=== PATIENT | female | born 1970 | race Caucasian/White ===

== ENCOUNTER 2019-10-21 00:29 | Emergency (ER) | payer OTHER ==
[~2019-10-21] VITALS: Ht 162.6 cm; Wt 113.6 kg
[~2019-10-21 00:29] MED LIST: ANUSOL-HC SUPPO25 MG REC; COLACE100 M1 PO; CYMBALTA PO; LANSOPRAZOLE30 MG PO; MESALAMINE4 GM/60 ML REC; MIRALAX17 GM/DOSE PO; PERCOCET 325 MG1 TA2 PO; XANAX XR2 MG PO; ZOCOR 40MG40 MG PO
[2019-10-21] MEDS ORDERED: LOPID600 M1 PO (00:41)
[2019-10-21] MEDS ORDERED: CYMBALTA60 M1 PO (00:41)
[2019-10-21] MEDS ORDERED: REMERON15 MG PO (00:41)
[2019-10-21] MEDS ORDERED: BENTYL 20MG20 MG/TAB PO (00:42)
[2019-10-21] MEDS ORDERED: SULFAZINE500 M2 PO (00:42)
[2019-10-21 01:05] LABS: HEMATOCRIT 29.1 % (37.0-47.0); HEMOGLOBIN 8.4 g/dL (12.5-16.0); MEAN CELL VOLUME 80 fl (78-100); MEAN PLATELET VOLUME 9.4 fl (7.4-10.4); PLATELET COUNT 235 K/mm3 (130-400); RED BLOOD COUNT 3.62 M/mm3 (4.10-5.30); RED CELL DISTRIBUTION WIDTH 17.7 % (11.5-14.5); WHITE BLOOD COUNT 7.2 K/mm3 (4.8-10.8)
[2019-10-21 01:14] LABS: ALBUMIN 3.9 g/dL (3.5-5.0); POTASSIUM 3.8 mmol/L (3.5-5.1)
[2019-10-21 01:15] LABS: CALCIUM 8.8 mg/dL (8.3-10.5)
[2019-10-21 01:17] LABS: TOTAL PROTEIN 6.5 g/dL (6.4-8.3)
[2019-10-21 01:18] LABS: TOTAL BILIRUBIN 0.3 mg/dL (0.2-1.2)
[2019-10-21 01:19] LABS: MEAN CORPUSCULAR HEMOGLOBIN 23 pg (27-31); MEAN CORPUSCULAR HGB CONC 29 g/dL (33-37)
[2019-10-21 01:20] LABS: HYPOCHROMIA 1+; LYMPHOCYTE 4 % (20-51); MICROCYTOSIS 1+; MONOCYTE 2 % (3-10); NEUTROPHILS 94 % (42-75); POLYCHROMASIA 1+
[2019-10-21 02:08] LABS: URINE APPEARANCE HAZY; URINE COLOR YELLOW
[2019-10-21 02:09] LABS: PH-URINE 5.5 (5.0 - 8.0); URINE BILIRUBIN NEGATIVE (NEGATIVE); URINE BLOOD TRACE (NEGATIVE); URINE KETONE 1+ (NEGATIVE); URINE LEUKOCYTE ESTERASE TRACE (NEGATIVE); URINE MUCUS PRESENT (NOT PRESENT); URINE NITRATE NEGATIVE (NEGATIVE); URINE PROTEIN(semi-quant) TRACE mg/dL (NEGATIVE); URINE UROBILINOGEN NORMAL (NORMAL)
[2019-10-21 03:16] VITALS: BP 145/104
== END 2019-10-21 03:16 | disposition left against medical advice (07) ==
LOC: ED 00:29
PROVIDERS: Family Medicine; Physician Assistant
DX: R10.32 Left lower quadrant pain (principal); R73.9 Hyperglycemia, unspecified; K21.9 Gastro-esophageal reflux disease without esophagitis; F41.9 Anxiety disorder, unspecified; E78.5 Hyperlipidemia, unspecified; D64.9 Anemia, unspecified; K51.90 Ulcerative colitis, unspecified, without complications; Z87.891 Personal history of nicotine dependence; Z90.49 Acquired absence of other specified parts of digestive tract; Z90.710 Acquired absence of both cervix and uterus; Z88.6 Allergy status to analgesic agent; Z88.8 Allergy status to other drugs, medicaments and biological substances
CPT/HCPCS: J1170

== ENCOUNTER 2020-09-19 16:24 | Emergency (ER) | payer OTHER ==
[~2020-09-19 16:24] MED LIST changes: +ALPRAZOLAM ER2 MG PO; +BENTYL 20MG20 MG/TAB PO; +CYMBALTA60 M1 PO; +LOPID600 M1 PO; +REMERON15 MG PO; +SULFAZINE500 M2 PO; -XANAX XR2 MG PO; -ZOCOR 40MG40 MG PO; +ZOCOR40 M1 PO
[2020-09-19] MEDS ORDERED: LANSOPRAZOLE30 MG PO (17:17)
[2020-09-19] MEDS ORDERED: ZOFRAN ODT4 MG PO (17:18)
[2020-09-19] MEDS ORDERED: NORCO 325 MG-51 TA1 PO (17:18)
[2020-09-19] MEDS ORDERED: DESYREL 100MG100 MG PO (17:20)
[2020-09-19 18:16] LABS: URINE WBC 0 /hpf (0-3)
[2020-09-19 18:19] LABS: HEMATOCRIT 34.8 % (37.0-47.0); HEMOGLOBIN 10.7 g/dL (12.5-16.0); MEAN CELL VOLUME 85 fl (78-100); MEAN CORPUSCULAR HEMOGLOBIN 26 pg (27-31); MEAN CORPUSCULAR HGB CONC 31 g/dL (33-37); MEAN PLATELET VOLUME 9.6 fl (7.4-10.4); PLATELET COUNT 289 K/mm3 (130-400); WHITE BLOOD COUNT 7.7 K/mm3 (4.8-10.8)
[2020-09-19 18:26] LABS: ALBUMIN 4.2 g/dL (3.5-5.0); POTASSIUM 3.6 mmol/L (3.5-5.1)
[2020-09-19 18:28] LABS: TOTAL PROTEIN 6.8 g/dL (6.4-8.3)
[2020-09-19 18:29] LABS: URINE APPEARANCE CLEAR; URINE COLOR YELLOW
[2020-09-19 18:30] LABS: TOTAL BILIRUBIN 0.4 mg/dL (0.2-1.2)
[2020-09-19 18:30] LABS: URINE BILIRUBIN NEGATIVE (NEGATIVE); URINE BLOOD NEGATIVE (NEGATIVE); URINE GLUCOSE NEGATIVE (NEGATIVE); URINE KETONE NEGATIVE (NEGATIVE); URINE LEUKOCYTE ESTERASE NEGATIVE (NEGATIVE); URINE NITRATE NEGATIVE (NEGATIVE); URINE PROTEIN(semi-quant) NEGATIVE (NEGATIVE); URINE UROBILINOGEN NORMAL (NORMAL)
[2020-09-19 18:39] LABS: HYPOCHROMIA 1+; LYMPHOCYTE 7 % (20-51); MONOCYTE 9 % (3-10); NEUTROPHILS 83 % (42-75); OVALOCYTES 1+; POLYCHROMASIA 1+
[2020-09-19] MEDS ORDERED: PREDNISONE20 M1 PO (20:23)
[2020-09-19] MEDS ORDERED: METOPROLOL SUCC50 M1 PO (20:39)
[2020-09-19 20:52] VITALS: BP 146/94
== END 2020-09-19 20:52 | disposition home or self-care (01) ==
LOC: ED 16:24
PROVIDERS: Family Medicine
DX: K51.30 Ulcerative (chronic) rectosigmoiditis without complications (principal); D64.9 Anemia, unspecified; I10 Essential (primary) hypertension; Z90.89 Acquired absence of other organs; Z90.49 Acquired absence of other specified parts of digestive tract; Z90.710 Acquired absence of both cervix and uterus; Z88.1 Allergy status to other antibiotic agents; Z88.6 Allergy status to analgesic agent
CPT/HCPCS: J0595; J2060; J2920

== ENCOUNTER 2020-09-22 12:06 | Emergency (ER) | payer OTHER ==
[~2020-09-22 12:06] MED LIST changes: +DESYREL 100MG100 MG PO; +METOPROLOL SUCC50 M1 PO; +NORCO 325 MG-51 TA1 PO; +PREDNISONE20 M1 PO; +ZOFRAN ODT4 MG PO
[2020-09-22 12:51] LABS: HEMATOCRIT 37.6 % (37.0-47.0); HEMOGLOBIN 11.6 g/dL (12.5-16.0); MEAN CELL VOLUME 83 fl (78-100); MEAN CORPUSCULAR HEMOGLOBIN 26 pg (27-31); MEAN CORPUSCULAR HGB CONC 31 g/dL (33-37); MEAN PLATELET VOLUME 9.7 fl (7.4-10.4); PLATELET COUNT 311 K/mm3 (130-400); RED BLOOD COUNT 4.52 M/mm3 (4.10-5.30); RED CELL DISTRIBUTION WIDTH 13.8 % (11.5-14.5); WHITE BLOOD COUNT 7.6 K/mm3 (4.8-10.8)
[2020-09-22 12:53] LABS: LYMPHOCYTE 9 % (20-51); MONOCYTE 9 % (3-10); NEUTROPHILS 80 % (42-75)
[2020-09-22 13:00] LABS: ALBUMIN 3.9 g/dL (3.5-5.0); POTASSIUM 3.7 mmol/L (3.5-5.1)
[2020-09-22 13:01] LABS: CALCIUM 8.8 mg/dL (8.3-10.5)
[2020-09-22 13:02] LABS: TOTAL PROTEIN 6.8 g/dL (6.4-8.3)
[2020-09-22 13:04] LABS: TOTAL BILIRUBIN 0.4 mg/dL (0.2-1.2)
[2020-09-22 13:57] LABS: URINE APPEARANCE CLEAR; URINE BILIRUBIN NEGATIVE (NEGATIVE); URINE BLOOD TRACE (NEGATIVE); URINE COLOR YELLOW; URINE GLUCOSE NEGATIVE (NEGATIVE); URINE KETONE NEGATIVE (NEGATIVE); URINE LEUKOCYTE ESTERASE NEGATIVE (NEGATIVE); URINE NITRATE NEGATIVE (NEGATIVE); URINE PROTEIN(semi-quant) TRACE mg/dL (NEGATIVE); URINE UROBILINOGEN NORMAL (NORMAL); URINE WBC 0-1 /hpf (0-3)
[2020-09-22 14:55] VITALS: BP 166/105
== END 2020-09-22 14:55 | disposition home or self-care (01) ==
LOC: ED 12:06
PROVIDERS: Physician Assistant
DX: R10.9 Unspecified abdominal pain (principal); I10 Essential (primary) hypertension; E78.5 Hyperlipidemia, unspecified; F41.9 Anxiety disorder, unspecified; K21.9 Gastro-esophageal reflux disease without esophagitis; Z90.49 Acquired absence of other specified parts of digestive tract; Z90.710 Acquired absence of both cervix and uterus; Z90.89 Acquired absence of other organs; Z87.891 Personal history of nicotine dependence; Z88.1 Allergy status to other antibiotic agents; Z88.6 Allergy status to analgesic agent; Z79.891 Long term (current) use of opiate analgesic
CPT/HCPCS: J2405; J3010; J7030; Q9967

== ENCOUNTER 2020-09-28 17:05 | Inpatient (IN) | payer OTHER ==
[~2020-09-28] VITALS: Ht 162.6 cm; Wt 105.3 kg
[2020-09-28 18:20] LABS: HEMATOCRIT 32.4 % (37.0-47.0); HEMOGLOBIN 9.8 g/dL (12.5-16.0); MEAN CELL VOLUME 85 fl (78-100); MEAN CORPUSCULAR HEMOGLOBIN 26 pg (27-31); MEAN CORPUSCULAR HGB CONC 30 g/dL (33-37); MEAN PLATELET VOLUME 9.4 fl (7.4-10.4); PLATELET COUNT 294 K/mm3 (130-400); RED BLOOD COUNT 3.82 M/mm3 (4.10-5.30); RED CELL DISTRIBUTION WIDTH 13.7 % (11.5-14.5)
[2020-09-28 18:30] LABS: ALBUMIN 3.6 g/dL (3.5-5.0); POTASSIUM 3.3 mmol/L (3.5-5.1)
[2020-09-28 18:32] LABS: CALCIUM 8.6 mg/dL (8.3-10.5)
[2020-09-28 18:33] LABS: TOTAL PROTEIN 6.3 g/dL (6.4-8.3)
[2020-09-28 18:34] LABS: LYMPHOCYTE 10 % (20-51); MONOCYTE 9 % (3-10); NEUTROPHILS 80 % (42-75)
[2020-09-28 18:35] LABS: TOTAL BILIRUBIN 0.2 mg/dL (0.2-1.2)
[2020-09-28 19:34] LABS: URINE APPEARANCE CLEAR; URINE BILIRUBIN NEGATIVE (NEGATIVE); URINE BLOOD NEGATIVE (NEGATIVE); URINE COLOR YELLOW; URINE GLUCOSE NEGATIVE (NEGATIVE); URINE KETONE NEGATIVE (NEGATIVE); URINE LEUKOCYTE ESTERASE NEGATIVE (NEGATIVE); URINE NITRATE NEGATIVE (NEGATIVE); URINE PROTEIN(semi-quant) TRACE mg/dL (NEGATIVE); URINE UROBILINOGEN NORMAL (NORMAL)
[2020-09-28 22:00] VITALS: BP 145/95
[2020-09-28 23:30] VITALS: BP 145/95
[2020-09-29] VITALS (7 sets, daily range): BP systolic 146–197; BP diastolic 95–138
[2020-09-29 06:16] LABS: HEMATOCRIT 32.7 % (37.0-47.0); MEAN CELL VOLUME 87 fl (78-100); MEAN CORPUSCULAR HEMOGLOBIN 27 pg (27-31); MEAN CORPUSCULAR HGB CONC 31 g/dL (33-37); MEAN PLATELET VOLUME 11.1 fl (7.4-10.4); PLATELET COUNT 162 K/mm3 (130-400); RED BLOOD COUNT 3.78 M/mm3 (4.10-5.30); RED CELL DISTRIBUTION WIDTH 13.6 % (11.5-14.5)
[2020-09-29 06:36] LABS: POTASSIUM 4.6 mmol/L (3.5-5.1)
[2020-09-29 06:37] LABS: CALCIUM 8.4 mg/dL (8.3-10.5)
[2020-09-29 06:44] LABS: LYMPHOCYTE 4 % (20-51); MONOCYTE 1 % (3-10); NEUTROPHILS 95 % (42-75)
[2020-09-29] MEDS ORDERED: CIPRO 500MG TA500 MG PO (12:29)
[2020-09-29] MEDS ORDERED: ROXICODONE 55 MG/TAB PO (12:34)
[2020-09-29] MEDS ORDERED: ACETAMINOPHEN-O1 TAB PO (12:35)
[2020-09-30 01:39] VITALS: BP 139/98
[2020-09-30 05:37] LABS: HEMATOCRIT 30.8 % (37.0-47.0); HEMOGLOBIN 9.1 g/dL (12.5-16.0); MEAN CELL VOLUME 86 fl (78-100); MEAN CORPUSCULAR HEMOGLOBIN 25 pg (27-31); MEAN CORPUSCULAR HGB CONC 30 g/dL (33-37); MEAN PLATELET VOLUME 9.9 fl (7.4-10.4); PLATELET COUNT 244 K/mm3 (130-400); RED BLOOD COUNT 3.59 M/mm3 (4.10-5.30); RED CELL DISTRIBUTION WIDTH 13.3 % (11.5-14.5); WHITE BLOOD COUNT 6.8 K/mm3 (4.8-10.8)
[2020-09-30 05:43] VITALS: BP 151/95
[2020-09-30 05:50] LABS: ALBUMIN 3.5 g/dL (3.5-5.0)
[2020-09-30 05:51] LABS: POTASSIUM 4.2 mmol/L (3.5-5.1)
[2020-09-30 05:52] LABS: CALCIUM 8.6 mg/dL (8.3-10.5)
[2020-09-30 05:53] LABS: TOTAL PROTEIN 5.8 g/dL (6.4-8.3)
[2020-09-30 05:55] LABS: TOTAL BILIRUBIN 0.2 mg/dL (0.2-1.2)
[2020-09-30 06:47] LABS: BAND 1 % (0-10); LYMPHOCYTE 2 % (20-51); NEUTROPHILS 97 % (42-75); OVALOCYTES 1+
[2020-09-30] MEDS ORDERED: METRONIDAZOLE500 M1 PO (09:34)
[2020-09-30] MEDS ORDERED: CIPRO 500MG TA500 MG PO (09:34)
== END 2020-09-30 08:45 | disposition left against medical advice (07) | DRG 386 ==
LOC: ED 17:05 → MED/SURG 21:25
PROVIDERS: Physician Assistant; ADMIT Nurse Practitioner Family
DX: K51.90 Ulcerative colitis, unspecified, without complications (principal); K57.92 Diverticulitis of intestine, part unspecified, without perforation or abscess without bleeding; R10.32 Left lower quadrant pain; D64.9 Anemia, unspecified; E87.6 Hypokalemia; E86.0 Dehydration; I10 Essential (primary) hypertension; Z20.828 Contact with and (suspected) exposure to other viral communicable diseases; F41.9 Anxiety disorder, unspecified; F32.9 Major depressive disorder, single episode, unspecified; E78.5 Hyperlipidemia, unspecified; Z90.710 Acquired absence of both cervix and uterus; Z79.891 Long term (current) use of opiate analgesic; Z79.52 Long term (current) use of systemic steroids; Z87.891 Personal history of nicotine dependence; Z88.1 Allergy status to other antibiotic agents
CPT/HCPCS: J0595; J1650; J2270; J2405; J2930; J3480; J7030

== ENCOUNTER 2021-04-19 16:43 | Emergency (ER) | payer BC ==
[~2021-04-19 16:43] MED LIST changes: +ACETAMINOPHEN-O1 TAB PO; +CIPRO 500MG TA500 MG PO; +METRONIDAZOLE500 M1 PO; +ROXICODONE 55 MG/TAB PO
[2021-04-19] MEDS ORDERED: METOPROLOL SUCC50 M1 PO (17:05)
[2021-04-19 18:20] LABS: BASO # 0.02 (0.02-0.10); EOS # 0.19 (0.04-0.40); EOS % 6.2 % (1.0-5.0); HEMATOCRIT 25.3 % (37.0-47.0); HEMOGLOBIN 7.9 g/dL (12.5-16.0); LYMPH# 0.42 (1.50-4.00); MEAN CELL VOLUME 81 fl (78-100); MEAN CORPUSCULAR HEMOGLOBIN 25 pg (27-31); MEAN CORPUSCULAR HGB CONC 31 g/dL (33-37); MONO # 0.34 (0.20-0.80); NEU # 2.09 (1.40-6.50); PLATELET COUNT 285 K/mm3 (130-400); RED BLOOD COUNT 3.13 M/mm3 (4.10-5.30); RED CELL DISTRIBUTION WIDTH 13.6 % (11.5-14.5); WHITE BLOOD COUNT 3.1 K/mm3 (4.8-10.8)
[2021-04-19 18:26] LABS: URINE APPEARANCE CLEAR; URINE BILIRUBIN NEGATIVE (NEGATIVE); URINE BLOOD TRACE (NEGATIVE); URINE COLOR YELLOW; URINE GLUCOSE NEGATIVE (NEGATIVE); URINE KETONE NEGATIVE (NEGATIVE); URINE LEUKOCYTE ESTERASE NEGATIVE (NEGATIVE); URINE NITRATE NEGATIVE (NEGATIVE); URINE PROTEIN(semi-quant) TRACE mg/dL (NEGATIVE); URINE UROBILINOGEN NORMAL (NORMAL); URINE WBC 0-1 /hpf (0-3)
[2021-04-19 18:33] LABS: ALBUMIN 3.4 g/dL (3.5-5.0)
[2021-04-19 18:34] LABS: POTASSIUM 3.9 mmol/L (3.5-5.1)
[2021-04-19 18:35] LABS: CALCIUM 8.5 mg/dL (8.3-10.5)
[2021-04-19 18:36] LABS: TOTAL PROTEIN 6.1 g/dL (6.4-8.3)
[2021-04-19 18:38] LABS: TOTAL BILIRUBIN 0.2 mg/dL (0.2-1.2)
[2021-04-19 19:24] LABS: LYMPHOCYTE 14 % (20-51); MONOCYTE 12 % (3-10); NEUTROPHILS 70 % (42-75); OVALOCYTES 2+; TARGET CELLS 1+; TEAR DROP CELLS 1+
[2021-04-19 21:30] VITALS: BP 150/90
== END 2021-04-19 21:36 | disposition home or self-care (01) ==
LOC: ED 16:43
PROVIDERS: Nurse Practitioner Family
DX: R19.5 Other fecal abnormalities (principal); R10.32 Left lower quadrant pain; R11.2 Nausea with vomiting, unspecified; D50.0 Iron deficiency anemia secondary to blood loss (chronic); K51.90 Ulcerative colitis, unspecified, without complications; E78.5 Hyperlipidemia, unspecified; F32.9 Major depressive disorder, single episode, unspecified; F41.9 Anxiety disorder, unspecified; I10 Essential (primary) hypertension; Z90.710 Acquired absence of both cervix and uterus; Z90.49 Acquired absence of other specified parts of digestive tract; Z87.891 Personal history of nicotine dependence; Z79.899 Other long term (current) drug therapy
CPT/HCPCS: J1170; J2405; J3010; J7030; Q9967

== ENCOUNTER 2021-04-20 12:17 | Emergency (ER) | payer BC ==
[2021-04-20 13:20] LABS: HEMATOCRIT 30.2 % (37.0-47.0); HEMOGLOBIN 9.3 g/dL (12.5-16.0); MEAN CELL VOLUME 82 fl (78-100); MEAN CORPUSCULAR HEMOGLOBIN 25 pg (27-31); MEAN CORPUSCULAR HGB CONC 31 g/dL (33-37); MEAN PLATELET VOLUME 9.8 fl (7.4-10.4); PLATELET COUNT 307 K/mm3 (130-400); RED CELL DISTRIBUTION WIDTH 13.4 % (11.5-14.5); WHITE BLOOD COUNT 3.7 K/mm3 (4.8-10.8)
[2021-04-20 13:32] LABS: ALBUMIN 3.9 g/dL (3.5-5.0)
[2021-04-20 13:33] LABS: CALCIUM 9.1 mg/dL (8.3-10.5); PROTHROMBIN TIME 9.9 SECONDS (9.0-12.0)
[2021-04-20 13:36] LABS: TOTAL BILIRUBIN 0.4 mg/dL (0.2-1.2)
[2021-04-20 13:44] LABS: LYMPHOCYTE 9 % (20-51); MONOCYTE 6 % (3-10); NEUTROPHILS 84 % (42-75)
[2021-04-20 15:10] VITALS: BP 153/126
== END 2021-04-20 15:10 | disposition home or self-care (01) ==
LOC: ED 12:17
PROVIDERS: Physician Assistant
DX: K51.90 Ulcerative colitis, unspecified, without complications (principal); E78.5 Hyperlipidemia, unspecified; I10 Essential (primary) hypertension; F32.9 Major depressive disorder, single episode, unspecified; Z90.49 Acquired absence of other specified parts of digestive tract; Z87.891 Personal history of nicotine dependence; Z88.6 Allergy status to analgesic agent; Z79.899 Other long term (current) drug therapy
CPT/HCPCS: J1170; J7030

== ENCOUNTER 2021-05-04 20:38 | Emergency (ER) | payer BC ==
[2021-05-04 21:07] VITALS: BP 125/95
== END 2021-05-04 21:54 | disposition left against medical advice (07) ==
LOC: ED 20:38
DX: R10.9 Unspecified abdominal pain (principal); R11.2 Nausea with vomiting, unspecified; R19.5 Other fecal abnormalities; Z90.49 Acquired absence of other specified parts of digestive tract; Z90.710 Acquired absence of both cervix and uterus; Z87.891 Personal history of nicotine dependence; Z87.19 Personal history of other diseases of the digestive system

== ENCOUNTER 2021-07-13 19:43 | Emergency (ER) | payer BC ==
[2021-07-13 21:28] LABS: HEMATOCRIT 27.2 % (37.0-47.0); HEMOGLOBIN 8.2 g/dL (12.5-16.0); MEAN CELL VOLUME 85 fl (78-100); MEAN CORPUSCULAR HEMOGLOBIN 26 pg (27-31); MEAN CORPUSCULAR HGB CONC 30 g/dL (33-37); RED BLOOD COUNT 3.19 M/mm3 (4.10-5.30); RED CELL DISTRIBUTION WIDTH 17.1 % (11.5-14.5); WHITE BLOOD COUNT 7.8 K/mm3 (4.8-10.8)
[2021-07-13 21:45] LABS: ALBUMIN 3.5 g/dL (3.5-5.0)
[2021-07-13 21:46] LABS: POTASSIUM 3.8 mmol/L (3.5-5.1)
[2021-07-13 21:47] LABS: CALCIUM 9.4 mg/dL (8.3-10.5)
[2021-07-13 21:51] LABS: TOTAL BILIRUBIN 0.1 mg/dL (0.2-1.2)
[2021-07-13 21:52] LABS: PLATELET COUNT 200 K/mm3 (130-400)
[2021-07-13 21:53] LABS: BAND 2 % (0-10); HYPOCHROMIA 1+; LYMPHOCYTE 6 % (20-51); MICROCYTOSIS 1+; MONOCYTE 5 % (3-10); NEUTROPHILS 87 % (42-75)
[2021-07-13 21:54] LABS: TEAR DROP CELLS 1+
[2021-07-13 21:55] LABS: OVALOCYTES 1+
[2021-07-13 22:33] LABS: ERYTHROCYTE SEDIMENTATION RATE 21 mm/hr (0-30)
[2021-07-13 23:20] VITALS: BP 129/85
== END 2021-07-13 23:20 | disposition home or self-care (01) ==
LOC: ED 19:43
PROVIDERS: Physician Assistant
DX: G89.29 Other chronic pain (principal); R10.32 Left lower quadrant pain; D50.9 Iron deficiency anemia, unspecified; R11.0 Nausea; Z90.49 Acquired absence of other specified parts of digestive tract; Z90.710 Acquired absence of both cervix and uterus; Z87.19 Personal history of other diseases of the digestive system
CPT/HCPCS: J1170; J2405; J7030

== ENCOUNTER 2021-07-15 16:05 | Emergency (ER) | payer BC ==
[~2021-07-15] VITALS: Ht 162.6 cm; Wt 96.3 kg
[2021-07-15 16:54] LABS: HEMATOCRIT 30.5 % (37.0-47.0); HEMOGLOBIN 9.1 g/dL (12.5-16.0); MEAN CELL VOLUME 85 fl (78-100); MEAN CORPUSCULAR HEMOGLOBIN 26 pg (27-31); MEAN CORPUSCULAR HGB CONC 30 g/dL (33-37); MEAN PLATELET VOLUME 9.9 fl (7.4-10.4); PLATELET COUNT 248 K/mm3 (130-400); RED BLOOD COUNT 3.57 M/mm3 (4.10-5.30); RED CELL DISTRIBUTION WIDTH 16.8 % (11.5-14.5); WHITE BLOOD COUNT 6.5 K/mm3 (4.8-10.8)
[2021-07-15 17:02] LABS: ALBUMIN 3.6 g/dL (3.5-5.0); POTASSIUM 3.3 mmol/L (3.5-5.1)
[2021-07-15 17:04] LABS: CALCIUM 9.2 mg/dL (8.3-10.5)
[2021-07-15 17:05] LABS: TOTAL PROTEIN 6.3 g/dL (6.4-8.3)
[2021-07-15 17:07] LABS: TOTAL BILIRUBIN 0.2 mg/dL (0.2-1.2)
[2021-07-15 17:22] LABS: LYMPHOCYTE 7 % (20-51); MONOCYTE 10 % (3-10); NEUTROPHILS 82 % (42-75)
[2021-07-15 18:52] VITALS: BP 132/96
== END 2021-07-15 18:53 | disposition home or self-care (01) ==
LOC: ED 16:05
PROVIDERS: Nurse Practitioner
DX: K51.90 Ulcerative colitis, unspecified, without complications (principal); D50.9 Iron deficiency anemia, unspecified; I10 Essential (primary) hypertension; E78.5 Hyperlipidemia, unspecified; F41.9 Anxiety disorder, unspecified; F32.9 Major depressive disorder, single episode, unspecified; Z90.49 Acquired absence of other specified parts of digestive tract; Z79.899 Other long term (current) drug therapy
CPT/HCPCS: J2405; J2930; J3010; J7030

== ENCOUNTER 2021-10-16 14:18 | Emergency (ER) | payer BC ==
[~2021-10-16] VITALS: Ht 162.6 cm; Wt 95.4 kg
[2021-10-16 15:03] LABS: HEMATOCRIT 29.4 % (37.0-47.0); HEMOGLOBIN 9.5 g/dL (12.5-16.0); MEAN CELL VOLUME 83 fl (78-100); MEAN CORPUSCULAR HEMOGLOBIN 27 pg (27-31); MEAN CORPUSCULAR HGB CONC 32 g/dL (33-37); MEAN PLATELET VOLUME 9.9 fl (7.4-10.4); PLATELET COUNT 245 K/mm3 (130-400); RED BLOOD COUNT 3.56 M/mm3 (4.10-5.30); RED CELL DISTRIBUTION WIDTH 12.7 % (11.5-14.5); WHITE BLOOD COUNT 3.4 K/mm3 (4.8-10.8)
[2021-10-16 15:14] LABS: POTASSIUM 3.7 mmol/L (3.5-5.1)
[2021-10-16 15:15] LABS: CALCIUM 9.4 mg/dL (8.3-10.5)
[2021-10-16 15:18] LABS: TOTAL BILIRUBIN 0.2 mg/dL (0.2-1.2)
[2021-10-16 15:36] LABS: LYMPHOCYTE 9 % (20-51); MONOCYTE 14 % (3-10); NEUTROPHILS 76 % (42-75)
[2021-10-16 15:41] LABS: URINE APPEARANCE CLOUDY; URINE BILIRUBIN NEGATIVE (NEGATIVE); URINE BLOOD 50 ery/uL (NEGATIVE); URINE COLOR YELLOW; URINE GLUCOSE NEGATIVE (NEGATIVE); URINE KETONE NEGATIVE (NEGATIVE); URINE LEUKOCYTE ESTERASE NEGATIVE (NEGATIVE); URINE NITRATE NEGATIVE (NEGATIVE); URINE PROTEIN(semi-quant) TRACE mg/dL (NEGATIVE); URINE UROBILINOGEN NORMAL (NORMAL); URINE WBC 0-1 /hpf (0-3)
[2021-10-16 19:09] VITALS: BP 148/89
== END 2021-10-16 19:09 | disposition home or self-care (01) ==
LOC: ED 14:18
PROVIDERS: Family Medicine
DX: A08.4 Viral intestinal infection, unspecified (principal); D50.9 Iron deficiency anemia, unspecified; Z90.49 Acquired absence of other specified parts of digestive tract; Z90.710 Acquired absence of both cervix and uterus; Z87.891 Personal history of nicotine dependence; Z88.1 Allergy status to other antibiotic agents
CPT/HCPCS: J0595; J2405; J7030

== ENCOUNTER 2021-11-15 18:10 | Emergency (ER) | payer OTHER ==
[~2021-11-15] VITALS: Ht 162.6 cm; Wt 95.4 kg
[2021-11-15] MEDS ORDERED: BENTYL 20MG20 MG/TAB PO (20:05)
[2021-11-15] MEDS ORDERED: SULFAZINE500 M1 PO (20:05)
[2021-11-15 20:38] LABS: HEMATOCRIT 27.6 % (37.0-47.0); HEMOGLOBIN 8.6 g/dL (12.5-16.0); MEAN CELL VOLUME 81 fl (78-100); MEAN CORPUSCULAR HEMOGLOBIN 25 pg (27-31); MEAN CORPUSCULAR HGB CONC 31 g/dL (33-37); MEAN PLATELET VOLUME 9.9 fl (7.4-10.4); PLATELET COUNT 263 K/mm3 (130-400); RED CELL DISTRIBUTION WIDTH 13.2 % (11.5-14.5); WHITE BLOOD COUNT 3.8 K/mm3 (4.8-10.8)
[2021-11-15 20:50] LABS: ALBUMIN 3.7 g/dL (3.5-5.0)
[2021-11-15 20:51] LABS: CALCIUM 9.4 mg/dL (8.3-10.5)
[2021-11-15 20:52] LABS: TOTAL PROTEIN 6.6 g/dL (6.4-8.3)
[2021-11-15 21:11] LABS: TOTAL BILIRUBIN 0.1 mg/dL (0.2-1.2)
[2021-11-15 21:27] LABS: LYMPHOCYTE 12 % (20-51); MONOCYTE 11 % (3-10); NEUTROPHILS 69 % (42-75)
[2021-11-15 21:28] LABS: OVALOCYTES 1+; ROULEAUX 2+
[2021-11-15 21:53] LABS: ERYTHROCYTE SEDIMENTATION RATE 57 mm/hr (0-30)
[2021-11-15 22:33] VITALS: BP 135/98
== END 2021-11-15 22:35 | disposition home or self-care (01) ==
LOC: ED 18:10
PROVIDERS: Physician Assistant
DX: A08.4 Viral intestinal infection, unspecified (principal); D50.9 Iron deficiency anemia, unspecified; I10 Essential (primary) hypertension; E78.5 Hyperlipidemia, unspecified; F32.A Depression, unspecified; Z87.738 Personal history of other specified (corrected) congenital malformations of digestive system; Z79.899 Other long term (current) drug therapy
CPT/HCPCS: J0595; J2550; J7030

== ENCOUNTER 2021-11-19 13:53 | Emergency (ER) | payer OTHER ==
[~2021-11-19] VITALS: Ht 162.6 cm; Wt 95.4 kg
[~2021-11-19 13:53] MED LIST changes: +SULFAZINE500 M1 PO
[2021-11-19 15:23] LABS: HEMATOCRIT 26.1 % (37.0-47.0); HEMOGLOBIN 8.3 g/dL (12.5-16.0); MEAN CELL VOLUME 81 fl (78-100); MEAN CORPUSCULAR HEMOGLOBIN 26 pg (27-31); MEAN CORPUSCULAR HGB CONC 32 g/dL (33-37); MEAN PLATELET VOLUME 9.7 fl (7.4-10.4); PLATELET COUNT 253 K/mm3 (130-400); RED BLOOD COUNT 3.24 M/mm3 (4.10-5.30); RED CELL DISTRIBUTION WIDTH 13.3 % (11.5-14.5); WHITE BLOOD COUNT 4.1 K/mm3 (4.8-10.8)
[2021-11-19 15:44] LABS: LYMPHOCYTE 14 % (20-51); MONOCYTE 12 % (3-10); NEUTROPHILS 70 % (42-75)
[2021-11-19 15:45] LABS: HYPOCHROMIA 2+; NUCLEATED RED BLOOD CELL 1 (0-6); OVALOCYTES 1+; POLYCHROMASIA 1+
[2021-11-19 16:01] LABS: PH-URINE 6.5 (5.0 - 8.0); URINE APPEARANCE CLEAR; URINE BILIRUBIN NEGATIVE (NEGATIVE); URINE BLOOD NEGATIVE (NEGATIVE); URINE COLOR LT YELLOW; URINE GLUCOSE NEGATIVE (NEGATIVE); URINE KETONE NEGATIVE (NEGATIVE); URINE LEUKOCYTE ESTERASE NEGATIVE (NEGATIVE); URINE NITRATE NEGATIVE (NEGATIVE); URINE PROTEIN(semi-quant) NEGATIVE (NEGATIVE); URINE UROBILINOGEN NORMAL (NORMAL); URINE WBC 0-1 /hpf (0-3)
[2021-11-19 17:30] VITALS: BP 120/94
== END 2021-11-19 17:30 | disposition home or self-care (01) ==
LOC: ED 13:53
PROVIDERS: Family Medicine
DX: R10.31 Right lower quadrant pain (principal); R11.2 Nausea with vomiting, unspecified; I10 Essential (primary) hypertension; Z90.49 Acquired absence of other specified parts of digestive tract
CPT/HCPCS: J0360; J1170

== ENCOUNTER 2021-12-09 20:00 | Emergency (ER) | payer OTHER ==
[~2021-12-09] VITALS: Ht 162.6 cm; Wt 99.9 kg
[2021-12-09] MEDS ORDERED: LOPID600 MG PO (20:35)
[2021-12-09] MEDS ORDERED: ESZOPICLONE3 MG PO (20:37)
[2021-12-09 22:07] VITALS: BP 138/89
== END 2021-12-09 22:07 | disposition home or self-care (01) ==
LOC: ED 20:00
DX: R05.1 Acute cough (principal)
CPT/HCPCS: J0595

== ENCOUNTER 2021-12-29 17:56 | Emergency (ER) | payer OTHER ==
[~2021-12-29 17:56] MED LIST changes: +ESZOPICLONE3 MG PO; +LOPID600 MG PO
[2021-12-29 18:04] VITALS: BP 167/115
[2021-12-29 18:21] LABS: HEMATOCRIT 27.4 % (37.0-47.0); HEMOGLOBIN 8.3 g/dL (12.5-16.0); MEAN CELL VOLUME 81 fl (78-100); MEAN CORPUSCULAR HEMOGLOBIN 24 pg (27-31); MEAN CORPUSCULAR HGB CONC 30 g/dL (33-37); MEAN PLATELET VOLUME 9.2 fl (7.4-10.4); PLATELET COUNT 274 K/mm3 (130-400); RED CELL DISTRIBUTION WIDTH 14.6 % (11.5-14.5); WHITE BLOOD COUNT 4.7 K/mm3 (4.8-10.8)
[2021-12-29 18:34] LABS: ALBUMIN 3.8 g/dL (3.5-5.0); POTASSIUM 3.6 mmol/L (3.5-5.1)
[2021-12-29 18:36] LABS: CALCIUM 8.8 mg/dL (8.3-10.5)
[2021-12-29 18:37] LABS: TOTAL PROTEIN 6.5 g/dL (6.4-8.3)
[2021-12-29 18:39] LABS: TOTAL BILIRUBIN 0.2 mg/dL (0.2-1.2)
[2021-12-29 18:44] LABS: BAND 2 % (0-10); LYMPHOCYTE 5 % (20-51); MONOCYTE 16 % (3-10); NEUTROPHILS 74 % (42-75)
[2021-12-29 18:45] LABS: HYPOCHROMIA 1+
== END 2021-12-29 18:54 | disposition home or self-care (01) ==
LOC: ED 17:56
PROVIDERS: Family Medicine
DX: G89.29 Other chronic pain (principal); R10.32 Left lower quadrant pain; R11.0 Nausea; D50.9 Iron deficiency anemia, unspecified; K51.90 Ulcerative colitis, unspecified, without complications; Z90.49 Acquired absence of other specified parts of digestive tract; Z90.710 Acquired absence of both cervix and uterus; Z79.899 Other long term (current) drug therapy
CPT/HCPCS: J2405

== ENCOUNTER 2022-07-22 13:30 | Emergency (ER) | payer OTHER ==
[~2022-07-22] VITALS: Ht 162.6 cm; Wt 105.3 kg
[2022-07-22] MEDS ORDERED: MESALAMINE1.2 GM PO (13:44)
[2022-07-22] MEDS ORDERED: LUNESTA3 M1 PO (13:45)
[2022-07-22 14:51] LABS: BASO # 0.02 K/mm3 (0.02-0.10); EOS # 0.09 K/mm3 (0.04-0.40); EOS % 1.7 % (1.0-5.0); HEMATOCRIT 33.3 % (37.0-47.0); HEMOGLOBIN 10.3 g/dL (12.5-16.0); LYMPH# 0.92 K/mm3 (1.50-4.00); MEAN CELL VOLUME 82 fl (78-100); MEAN CORPUSCULAR HEMOGLOBIN 25 pg (27-31); MEAN CORPUSCULAR HGB CONC 31 g/dL (33-37); MEAN PLATELET VOLUME 9.2 fl (7.4-10.4); MONO # 0.49 K/mm3 (0.20-0.80); NEU # 3.79 K/mm3 (1.40-6.50); PLATELET COUNT 289 K/mm3 (130-400); RED BLOOD COUNT 4.08 M/mm3 (4.10-5.30); RED CELL DISTRIBUTION WIDTH 16.4 % (11.5-14.5); WHITE BLOOD COUNT 5.3 K/mm3 (4.8-10.8)
[2022-07-22 15:05] LABS: CALCIUM 9.7 mg/dL (8.3-10.5)
[2022-07-22 15:07] LABS: URINE APPEARANCE CLEAR; URINE COLOR YELLOW
[2022-07-22 15:08] LABS: URINE BILIRUBIN NEGATIVE (NEGATIVE); URINE BLOOD NEGATIVE (NEGATIVE); URINE GLUCOSE NEGATIVE (NEGATIVE); URINE KETONE NEGATIVE (NEGATIVE); URINE LEUKOCYTE ESTERASE NEGATIVE (NEGATIVE); URINE NITRATE NEGATIVE (NEGATIVE); URINE PROTEIN(semi-quant) NEGATIVE (NEGATIVE); URINE UROBILINOGEN NORMAL (NORMAL); URINE WBC 0-1 /hpf (0-3)
[2022-07-22 18:38] VITALS: BP 150/131
== END 2022-07-22 18:20 | disposition home or self-care (01) ==
LOC: ED 13:30
PROVIDERS: Family Medicine
DX: R10.9 Unspecified abdominal pain (principal); G89.29 Other chronic pain; D50.9 Iron deficiency anemia, unspecified; R11.0 Nausea; Z87.891 Personal history of nicotine dependence; Z87.19 Personal history of other diseases of the digestive system
CPT/HCPCS: J0595; J7030